=== PATIENT | male | born 1955 | race Caucasian/White ===

== ENCOUNTER 2018-02-02 08:37 | Emergency (ER) | payer OTHER ==
[~2018-02-02] VITALS: Ht 162.6 cm; Wt 68.0 kg
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
[2018-02-02] MEDS ORDERED: LIDOCAINE 1% INJ 50 ML MDV IJ ONE (08:52)
[2018-02-02] MEDS ORDERED: LIDOCAINE HCL/MPF 1% 30 ML VIAL IJ ONE (08:53)
[2018-02-02] MEDS ORDERED: TDAP [DIPH/PERTUSSIS/TET] 0.5 ML VIAL IM ONE ×2 (08:56→09:00)
[2018-02-02] MEDS ORDERED: BACI/NEOM/POLY B OINT PKT 1 UDPKT PACKET TP ONE (09:00)
[2018-02-02] MEDS ORDERED: LIDOCAINE HCL/PF 1% 30 ML VIAL TP ONE (09:00)
--- NOTE | 2018-02-02 09:00 | NUR ---
DR. SOLIS AT BEDSIDE FOR SUTURE PROCEDURE.
[2018-02-02] MEDS ORDERED: BACI/NEOM/POLY B OINT PKT 1 UDPKT PACKET ONE (09:04)
--- NOTE | 2018-02-02 09:08 | NUR ---
XRAY IN PROGRESS AT BS
--- NOTE | 2018-02-02 09:20 | NUR ---
DR SOLIS AT FOR AN UPDATE.
[2018-02-02 09:22] VITALS: BP 148/88
--- NOTE | 2018-02-02 09:24 | NUR ---
Patient discharged to home in stable condition. Written and verbal after care instructions given. Patient verbalizes understanding of instruction.
[2018-02-02] MEDS ORDERED: IOHEXOL-350 100 ML VIAL IV ONE (10:26)
[2018-02-02] MEDS ORDERED: CT SWABBABLE VALVE TRANS SET 1 EA INFUS.SET MC ONE (10:26)
[2018-02-02] MEDS ORDERED: IV NS 0.9% 500 ML IV ONE (10:27)
[2018-02-02] MEDS ORDERED: NITROGLYCERIN 0.4 MG/TAB BOTTLE ONE (11:03)
== END 2018-02-02 09:29 | disposition home or self-care (01) ==
LOC: ER 08:40
DX: S67.191A Crushing injury of left index finger, initial encounter (principal); S61.211A Laceration without foreign body of left index finger without damage to nail, initial encounter; I10 Essential (primary) hypertension; W23.0XXA Caught, crushed, jammed, or pinched between moving objects, initial encounter; Y93.89 Activity, other specified; Y92.89 Other specified places as the place of occurrence of the external cause; Y99.8 Other external cause status
CPT/HCPCS: 73140-TC; 90715; A4606; A6402; J3490; J7040; Q9967; Z7610